=== PATIENT | female | born 1975 | race Caucasian/White ===

== ENCOUNTER → 2017-06-24 14:34 | Outpatient (CLI) | payer OTHER, SELFPAY ==
[2017-06-24 15:43] LABS: Progesterone Level 0.09 ng/mL (See Comment)
[2017-06-25 09:53] LABS: Cancer Antigen 125 208.2 U/mL (0.0-38.1)
== END ==
PROVIDERS: Visit Provider Obstetrics & Gynecology
DX: R10.31 Right lower quadrant pain (principal)
CPT/HCPCS: 36415; 84144; 86304